=== PATIENT | female | born 1975 | race Hispanic/Latino ===

== ENCOUNTER 2018-09-10 18:08 | Emergency (ER) | payer OTHER | END 2018-09-10 19:58 | disposition home or self-care (01) | LOC: EDH 18:08 | DX: S05.12XA Contusion of eyeball and orbital tissues, left eye, initial encounter (principal); S60.512A Abrasion of left hand, initial encounter; S60.511A Abrasion of right hand, initial encounter; S80.212A Abrasion, left knee, initial encounter; S80.211A Abrasion, right knee, initial encounter; Z90.49 Acquired absence of other specified parts of digestive tract; W18.39XA Other fall on same level, initial encounter; Y93.01 Activity, walking, marching and hiking; Y92.89 Other specified places as the place of occurrence of the external cause; Y99.8 Other external cause status | CPT/HCPCS: 70480 ==